=== PATIENT | female | born 1955 | race Two or more races ===

== ENCOUNTER 2017-09-28 08:28 | Emergency (ER) | payer OTHER ==
[~2017-09-28] VITALS: Ht 170.2 cm; Wt 61.7 kg
[~2017-09-28 08:28] MED LIST: AVAPRO150 MG PO; CELEBREX50 MG; FOSAMAX70 MG PO; SYNTHROID75 MCG PO; TRAMADOL HCL50 MG
[2017-09-28] MEDS ORDERED: ORAPRED ODT10 MG PO (10:04)
[2017-09-28] MEDS ORDERED: CLARITIN-D 241 EACH PO (10:04)
[2017-09-28] MEDS ORDERED: ZITHROMAX500 MG PO (10:04)
== END 2017-09-28 10:19 | disposition home or self-care (01) ==
LOC: ER 08:28
DX: J06.9 Acute upper respiratory infection, unspecified (principal)

== ENCOUNTER 2018-02-14 07:56 | Outpatient (CLI) | payer OTHER ==
[~2018-02-14 07:56] MED LIST changes: +CLARITIN-D 241 EACH PO; +ORAPRED ODT10 MG PO; +ZITHROMAX500 MG PO
== END 2018-02-14 10:55 | disposition home or self-care (01) ==
LOC: TOM 07:56
DX: K56.600 Partial intestinal obstruction, unspecified as to cause (principal); K56.50 Intestinal adhesions [bands], unspecified as to partial versus complete obstruction

== ENCOUNTER 2018-02-27 08:25 | Outpatient (CLI) | payer OTHER | END 2018-02-27 08:31 | disposition home or self-care (01) | LOC: MAMO-SONO 08:25 | DX: Z12.31 Encounter for screening mammogram for malignant neoplasm of breast (principal); Z87.898 Personal history of other specified conditions; N60.01 Solitary cyst of right breast ==

== ENCOUNTER 2018-06-07 16:01 | Outpatient (CLI) | payer OTHER | END 2018-06-07 16:26 | disposition home or self-care (01) | LOC: RAD 16:01 | DX: R05 Cough (principal) ==

== ENCOUNTER 2018-06-20 08:22 | Outpatient (CLI) | payer OTHER | END 2018-06-20 08:36 | disposition home or self-care (01) | LOC: SONOGRAMA 08:22 | DX: D72.818 Other decreased white blood cell count (principal); D63.8 Anemia in other chronic diseases classified elsewhere; D50.8 Other iron deficiency anemias ==

== ENCOUNTER 2018-08-07 10:33 | Outpatient (CLI) | payer OTHER | END 2018-08-07 11:00 | disposition home or self-care (01) | LOC: NUCLEAR 10:33 | DX: M81.0 Age-related osteoporosis without current pathological fracture (principal) ==

== ENCOUNTER 2019-04-03 08:54 | Outpatient (CLI) | payer OTHER | END 2019-04-03 09:00 | disposition home or self-care (01) | LOC: MAMO-SONO 08:54 | DX: Z12.31 Encounter for screening mammogram for malignant neoplasm of breast (principal); Z87.898 Personal history of other specified conditions; N60.01 Solitary cyst of right breast ==

== ENCOUNTER 2019-07-17 07:52 | Outpatient (CLI) | payer OTHER | END 2019-07-17 07:58 | disposition home or self-care (01) | LOC: RAD 07:52 | DX: R07.89 Other chest pain (principal) ==

== ENCOUNTER 2019-10-14 10:47 | Emergency (ER) | payer OTHER ==
[~2019-10-14] VITALS: Ht 170.2 cm; Wt 59.0 kg
[2019-10-14] MEDS ORDERED: CANDESARTAN-HC1 EACH PO (10:58)
[2019-10-14] MEDS ORDERED: ASPIR 8181 MG PO (11:01)
== END 2019-10-14 13:47 | disposition home or self-care (01) ==
LOC: ER 10:47
DX: S00.03XA Contusion of scalp, initial encounter (principal); M54.2 Cervicalgia; W22.09XA Striking against other stationary object, initial encounter; Y93.89 Activity, other specified; Y92.89 Other specified places as the place of occurrence of the external cause; Y99.8 Other external cause status

== ENCOUNTER → 2020-05-04 | Outpatient (CLI) | payer OTHER ==
[~2020-05-04] MED LIST changes: +ASPIR 8181 MG PO; +CANDESARTAN-HC1 EACH PO
== END | disposition home or self-care (01) ==
LOC: MAMO-SONO 08:29
PROVIDERS: ATTEND Obstetrics & Gynecology
DX: N60.02 Solitary cyst of left breast (principal); N64.59 Other signs and symptoms in breast; Z12.31 Encounter for screening mammogram for malignant neoplasm of breast

== ENCOUNTER → 2020-08-11 13:51 | Outpatient (CLI) | payer OTHER | END | disposition home or self-care (01) | LOC: PPH VACUNA 13:51 | PROVIDERS: ATTEND Emergency Medicine Pediatric Emergency Medicine | DX: Z23 Encounter for immunization (principal) ==

== ENCOUNTER → 2021-03-05 | Outpatient (CLI) | payer OTHER | END | disposition home or self-care (01) | LOC: NUCLEAR 12:38 | PROVIDERS: ATTEND Internal Medicine Endocrinology, Diabetes & Metabolism | DX: M81.0 Age-related osteoporosis without current pathological fracture (principal); E55.9 Vitamin D deficiency, unspecified ==

== ENCOUNTER 2021-04-08 09:00 | Outpatient (CLI) | payer OTHER | END 2021-04-08 09:15 | disposition home or self-care (01) | LOC: PPH VACUNA 09:00 | PROVIDERS: ATTEND Emergency Medicine Pediatric Emergency Medicine | DX: Z23 Encounter for immunization (principal) ==

== ENCOUNTER → 2021-04-08 | Outpatient (CLI) | payer OTHER | END | disposition home or self-care (01) | LOC: RAD 12:08 | PROVIDERS: ATTEND Orthopaedic Surgery | DX: M50.323 Other cervical disc degeneration at C6-C7 level (principal); M25.511 Pain in right shoulder; M25.512 Pain in left shoulder; Z76.89 Persons encountering health services in other specified circumstances; M43.8X4 Other specified deforming dorsopathies, thoracic region ==

== ENCOUNTER 2021-04-28 08:11 | Outpatient (CLI) | payer OTHER | END 2021-04-28 08:15 | disposition home or self-care (01) | LOC: MAMO-SONO 08:11 | PROVIDERS: ATTEND Obstetrics & Gynecology | DX: N64.89 Other specified disorders of breast (principal); Z12.31 Encounter for screening mammogram for malignant neoplasm of breast ==

== ENCOUNTER 2021-11-10 11:18 | Outpatient (CLI) | payer OTHER | END 2021-11-10 11:22 | disposition home or self-care (01) | LOC: RAD 11:18 | PROVIDERS: ATTEND Internal Medicine Cardiovascular Disease | DX: M12.9 Arthropathy, unspecified (principal); M46.48 Discitis, unspecified, sacral and sacrococcygeal region ==

== ENCOUNTER 2021-11-19 12:00 | Outpatient (CLI) | payer OTHER | END 2021-11-22 12:44 | disposition home or self-care (01) | LOC: MRI 12:00 | PROVIDERS: ATTEND Internal Medicine Cardiovascular Disease | DX: M46.48 Discitis, unspecified, sacral and sacrococcygeal region (principal) | CPT/HCPCS: 72148 ==

== ENCOUNTER 2022-06-07 08:33 | Outpatient (CLI) | payer OTHER | END 2022-06-07 08:43 | disposition home or self-care (01) | LOC: MAMO-SONO 08:33 | PROVIDERS: ATTEND Obstetrics & Gynecology | DX: N60.09 Solitary cyst of unspecified breast (principal) ==

== ENCOUNTER 2022-09-22 07:30 | Outpatient (CLI) | payer OTHER | END 2022-09-22 07:37 | disposition home or self-care (01) | LOC: RAD 07:30 | PROVIDERS: ATTEND Specialist | DX: M51.36 Other intervertebral disc degeneration, lumbar region (principal); M16.12 Unilateral primary osteoarthritis, left hip; M40.55 Lordosis, unspecified, thoracolumbar region ==

== ENCOUNTER 2022-10-13 07:55 | Outpatient (CLI) | payer OTHER | END 2022-10-13 07:57 | disposition home or self-care (01) | LOC: NUCLEAR 07:55 | DX: R06.02 Shortness of breath (principal) ==

== ENCOUNTER → 2022-11-04 | Outpatient (CLI) | payer OTHER | END | disposition home or self-care (01) | LOC: MRI 09:18 | PROVIDERS: ATTEND Specialist | DX: M54.16 Radiculopathy, lumbar region (principal); M51.26 Other intervertebral disc displacement, lumbar region | CPT/HCPCS: 72148 ==

== ENCOUNTER 2023-09-06 09:19 | Outpatient (CLI) | payer OTHER | END 2023-09-06 09:24 | disposition home or self-care (01) | LOC: MAMO-SONO 09:19 | PROVIDERS: ATTEND Obstetrics & Gynecology | DX: N60.09 Solitary cyst of unspecified breast (principal); Z12.31 Encounter for screening mammogram for malignant neoplasm of breast ==

== ENCOUNTER 2023-12-22 09:02 | Outpatient (CLI) | payer OTHER | END 2023-12-22 09:06 | disposition home or self-care (01) | LOC: RAD 09:02 | PROVIDERS: ATTEND Physical Medicine & Rehabilitation | DX: M54.41 Lumbago with sciatica, right side (principal) ==

== ENCOUNTER → 2023-12-28 13:25 | Outpatient (CLI) | payer OTHER | END | disposition home or self-care (01) | LOC: NUCLEAR 13:15 | PROVIDERS: ATTEND Internal Medicine Endocrinology, Diabetes & Metabolism | DX: M81.0 Age-related osteoporosis without current pathological fracture (principal) ==

== ENCOUNTER → 2024-08-30 | Emergency (ER) | payer OTHER ==
[~2024-08-30] VITALS: Ht 170.2 cm; Wt 54.4 kg
[~2024-08-30] MED LIST changes: +AMOX1TAB5; +ATACAND4 MG; +CRESTOR40 MG PO; +IBU400 MG; +PRISTIQ ER50 MG PO; +SYNTHROID50 MCG PO
== END | disposition left against medical advice (07) ==
LOC: ER
DX: Z53.21 Procedure and treatment not carried out due to patient leaving prior to being seen by health care provider (principal)

== ENCOUNTER 2024-09-25 09:59 | Outpatient (CLI) | payer OTHER | END 2024-09-25 10:09 | disposition home or self-care (01) | LOC: MAMO-SONO 09:59 | PROVIDERS: ATTEND Obstetrics & Gynecology | DX: N60.09 Solitary cyst of unspecified breast (principal); Z12.31 Encounter for screening mammogram for malignant neoplasm of breast ==

== ENCOUNTER 2024-12-24 12:24 | Emergency (ER) | payer OTHER ==
[~2024-12-24] VITALS: Ht 170.2 cm; Wt 54.9 kg
[2024-12-24] MEDS ORDERED: METHYLPREDNISOLONE SOD SUCC 125 MG VIAL IV ONE (13:00)
[2024-12-24] MEDS ORDERED: CIPROFLOXACIN HCL 0.175 MG/DR DROPS OP ONE (13:15)
[2024-12-24] MEDS ORDERED: MEDROLPACK PO (13:36)
[2024-12-24] MEDS ORDERED: CYCLOSPORINE OP (13:36)
== END 2024-12-24 19:10 | disposition home or self-care (01) ==
LOC: ER 12:24
DX: M35.07 Sjogren syndrome with central nervous system involvement (principal); Z91.018 Allergy to other foods

== ENCOUNTER 2025-01-07 17:52 | Emergency (ER) | payer OTHER ==
[~2025-01-07] VITALS: Ht 167.6 cm; Wt 59.0 kg
[~2025-01-07 17:52] MED LIST changes: +CYCLOSPORINE OP; +MEDROLPACK PO
[2025-01-07] MEDS ORDERED: FAMOTIDINE/PF 20 MG/2 ML VIAL IV ONE (18:30)
[2025-01-07] MEDS ORDERED: DIPHENHYDRAMINE HCL 50 MG/ML VIAL 1ML IV ONE (18:30)
[2025-01-07] MEDS ORDERED: METHYLPREDNISOLONE SOD SUCC 125 MG VIAL IV ONE (18:30)
[2025-01-07] MEDS ORDERED: ZYRTEC10 MG PO (20:53)
[2025-01-07] MEDS ORDERED: PEPCID AC20 MG PO (20:53)
[2025-01-07] MEDS ORDERED: MEDROLPACK PO (20:53)
== END 2025-01-07 21:15 ==
LOC: ER 17:52
DX: T78.40XA Allergy, unspecified, initial encounter (principal); Z91.018 Allergy to other foods; Z88.8 Allergy status to other drugs, medicaments and biological substances; I10 Essential (primary) hypertension; M35.00 Sjogren syndrome, unspecified; M19.90 Unspecified osteoarthritis, unspecified site